=== PATIENT | female | born 1950 | race Caucasian/White ===

== ENCOUNTER → 2018-12-20 | Outpatient (CLI) | payer MEDICARE | END | disposition home or self-care (01) | LOC: RADUSWWP 10:11 | PROVIDERS: ATTEND Internal Medicine | DX: I73.9 Peripheral vascular disease, unspecified (principal) | CPT/HCPCS: 93922 ==

== ENCOUNTER → 2019-01-18 | Outpatient (CLI) | payer MEDICARE ==
--- NOTE | 2019-01-18 09:47 | MM ---
Reason for exam: additional evaluation requested from abnormal screening. Last mammogram was performed less than 1 month ago. History: Patient is postmenopausal. Benign excisional biopsy of the left breast. Physical Findings: Nurse did not find any significant physical abnormalities on exam. MG 3D Work Up W/Cad LT Spot compression CC, spot compression MLO, and LM view(s) were taken of the left breast. Prior study comparison: January 08, 2019, bilateral MG screening mammo w CAD. March 02, 2012, mammogram. The breast tissue is heterogeneously dense. This may lower the sensitivity of mammography. Finding: There is an indistinct irregular mass in the upper outer quadrant, anterior position of the left breast. New finding since March 02, 2012. These results were verbally communicated with the patient and result sheet given to the patient on 01/18/19. ASSESSMENT: Incomplete: need additional imaging evaluation, BI-RAD 0 RECOMMENDATION: Ultrasound of the left breast.
--- NOTE | 2019-01-18 09:48 | USB ---
Reason for exam: additional evaluation requested from abnormal screening. History: Patient is postmenopausal. Benign excisional biopsy of the left breast. US Breast Workup Limited LT Left limited breast ultrasound including focal area of concern, retroareolar and axilla demonstrates no cystic or solid lesion seen. These results were verbally communicated with the patient and result sheet given to the patient on 01/18/19. ASSESSMENT: Negative, BI-RAD 1 RECOMMENDATION: Follow-up diagnostic mammogram of the left breast in 6 months.
== END | disposition home or self-care (01) ==
LOC: RADMAMWWP 08:39
PROVIDERS: ATTEND Internal Medicine
DX: R92.8 Other abnormal and inconclusive findings on diagnostic imaging of breast (principal)
CPT/HCPCS: 77065; 76642; G0279; 77061

== ENCOUNTER → 2020-09-08 | Outpatient (CLI) | payer MEDICARE ==
--- NOTE | 2020-09-10 11:59 | MM ---
Reason for exam: screening (asymptomatic). Last mammogram was performed 1 year and 8 months ago. History: Patient is postmenopausal. Family history of breast cancer in paternal aunt. Benign excisional biopsy of the left breast. Took hormonal contraceptives for 7 years. Physical Findings: A clinical breast exam by your physician is recommended on an annual basis and results should be correlated with mammographic findings. MG 3D Screening Mammo W/Cad Bilateral CC and MLO view(s) were taken. Prior study comparison: January 18, 2019, left breast MG 3d work up w/cad LT. January 08, 2019, bilateral MG screening mammo w CAD. There are scattered fibroglandular densities. No significant changes when compared with prior studies. ASSESSMENT: Benign, BI-RAD 2 RECOMMENDATION: Routine screening mammogram of both breasts in 1 year.
== END ==
LOC: RADMAMWWP 10:43
PROVIDERS: ATTEND Internal Medicine Geriatric Medicine
DX: Z12.31 Encounter for screening mammogram for malignant neoplasm of breast (principal); Z80.3 Family history of malignant neoplasm of breast; Z78.0 Asymptomatic menopausal state
CPT/HCPCS: 77063; 77067

== ENCOUNTER → 2021-07-30 | Outpatient (CLI) | payer MEDICARE ==
--- NOTE | 2021-07-30 13:11 | XR ---
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 TECHNIQUE: Frontal, lateral, and swimmer's view of thoracic spine are obtained. COMPARISON: None. FINDINGS: Thoracic spine show S-shaped scoliosis without evidence of acute fracture or dislocation. Osseous structures are somewhat demineralized. Vertebral body heights are preserved. Mild multilevel disc space narrowing and spurring Visualized ribs are intact bilaterally. Overlying Cholecystectomy clips are present. IMPRESSION: As above.
== END | disposition home or self-care (01) ==
LOC: RADXRMAIN 12:51
PROVIDERS: ATTEND Internal Medicine Geriatric Medicine
DX: M41.84 Other forms of scoliosis, thoracic region (principal); M51.84 Other intervertebral disc disorders, thoracic region; Z90.49 Acquired absence of other specified parts of digestive tract
CPT/HCPCS: 72072

== ENCOUNTER 2023-11-08 16:17 | Inpatient (IN) | payer MEDICARE ==
--- NOTE | 2023-11-08 18:35 | ED ---
GI Bleed HPI - General Chief complaint: GI Bleed Stated complaint: Groin pain, blood in stool Time Seen by Provider: 11/08/23 17:56 Source: patient, RN notes reviewed, old records reviewed Mode of arrival: ambulatory Limitations: no limitations - History of Present Illness Initial comments: This is a 73-year-old female to the ER for evaluation of significant abdominal pain with diarrhea patient feels nauseous and the need to vomit with significant diarrhea and blood in the stool. No travels no sick contacts no family was of similar complaint history of colonoscopy 10 years ago normal. MD complaint: blood on toilet paper, blood streaked stool -: hour(s) Quality: cramping, burning, sharp Consistency: intermittent Improves with: none Worsens with: none Associated Symptoms: abdominal pain, nausea, weakness Treatments Prior to Arrival: none - Related Data Home Medications Medication Instructions Recorded Confirmed Calcium W/Vitamin D(Unknown Dose) 1 tab PO DAILY 11/08/23 11/08/23 Multivitamins, Thera [Multivitamin 1 tab PO DAILY 11/08/23 11/08/23 (formulary)] lisinopriL 40 mg PO DAILY 11/08/23 11/08/23 Previous Rx's Medication Instructions Recorded Ciprofloxacin HCl [Cipro] 500 mg PO BID 4 Days #8 tab 11/12/23 Pantoprazole [Protonix] 40 mg PO AC-BRKFST 30 Days #30 tab 11/12/23 metroNIDAZOLE [Flagyl] 500 mg PO TID 4 Days #12 tab 11/12/23 Allergies Allergy/AdvReac Type Severity Reaction Status Date / Time No Known Allergies Allergy Verified 01/18/19 09:10 Review of Systems ROS Statement: Those systems with pertinent positive or pertinent negative responses have been documented in the HPI. ROS Other: All systems not noted in ROS Statement are negative. Past Medical History Past Medical History: Hypertension History of Any Multi-Drug Resistant Organisms: None Reported Past Surgical History: Cholecystectomy, Orthopedic Surgery, Tubal Ligation Past Psychological History: No Psychological Hx Reported Smoking Status: Former smoker Past Alcohol Use History: Daily Past Drug Use History: None Reported General Exam Limitations: no limitations General appearance: alert, in no apparent distress Head exam: Present: atraumatic, normocephalic, normal inspection Eye exam: Present: normal appearance, PERRL, EOMI. Absent: scleral icterus, conjunctival injection, periorbital swelling ENT exam: Present: normal exam, mucous membranes moist Neck exam: Present: normal inspection. Absent: tenderness, meningismus, lymphadenopathy Respiratory exam: Present: normal lung sounds bilaterally. Absent: respiratory distress, wheezes, rales, rhonchi, stridor Cardiovascular Exam: Present: regular rate, normal rhythm, normal heart sounds. Absent: systolic murmur, diastolic murmur, rubs, gallop, clicks GI/Abdominal exam: Present: soft, normal bowel sounds. Absent: distended, tenderness, guarding, rebound, rigid Extremities exam: Present: normal inspection, full ROM, normal capillary refill. Absent: tenderness, pedal edema, joint swelling, calf tenderness Back exam: Present: normal inspection Neurological exam: Present: alert, oriented X3, CN II-XII intact Psychiatric exam: Present: normal affect, normal mood Skin exam: Present: warm, dry, intact, normal color. Absent: rash Course Vital Signs 11/08/23 11/08/23 11/08/23 16:40 19:48 21:13 Temperature 98.2 F Pulse Rate 65 60 57 L Respiratory 18 18 18 Rate Blood Pressure 154/101 155/65 137/53 O2 Sat by Pulse 98 99 96 Oximetry 11/08/23 11/08/23 22:00 22:43 Temperature Pulse Rate 56 L 59 L Respiratory 16 16 Rate Blood Pressure 129/57 118/50 O2 Sat by Pulse 97 99 Oximetry - Reevaluation(s) Reevaluation #1: 11/08/23 21:30 Medical records reviewed Reevaluation #2: 11/08/23 21:30 Patient symptoms are persistent here in the ER Reevaluation #3: 11/08/23 21:30 Patient informed of results and questions answered Reevaluation #4: Was pt. sent in by a medical professional or institution (, PA, TRACK SERVICE WORKER, urgent care, hospital, or [place] health care facility...) When possible be specific @ -no Did you speak to anyone other than the patient for history (EMS, parent, family, police, friend...)? What history was obtained from this source @ -no Did you review nursing and triage notes (agree or disagree)? Why? @ -agree Are old charts reviewed (outside hosp., previous admission, EMS record, old EKG, old radiological studies, urgent care reports/EKG's, [place] health care facility records)? Report findings @ -yes Differential Diagnosis (chest pain, altered mental status, abdominal pain women, abdominal pain men, vaginal bleeding, weakness, fever, dyspnea, syncope, headache, dizziness, GI bleed, back pain, seizure, CVA, palpatations, mental h ealth, musculoskeletal)? @ -prior EKG interpreted by me (3pts min.). @ -yes X-rays interpreted by me (1pt min.). @ -no CT interpreted by me (1pt min.). @ -Yes positive colitis U/S interpreted by me (1pt. min.). @ -no What testing was considered but not performed or refused? (CT, X-rays, U/S, l abs)? Why? @ -none What meds were considered but not given or refused? Why? @ -none Did you discuss the management of the patient with other professionals (professionals i.e. , PA, TRACK SERVICE WORKER, lab, RT, psych nurse, foster care social worker, electromyographic technician, teacher, fire information officer, case management specialist)? Give summary @ -no Was smoking cessation discussed for >3mins.? @ -no Was critical care preformed (if so, how long)? @ -no Were there social determinants of health that impacted care today? How? (Homelessness, low income, unemployed, alcoholism, drug addiction, transportation, low edu. Level, literacy, decrease access to med. care, detention, rehab)? @ -none Was there de-escalation of care discussed even if they declined (Discuss DNR or withdrawal of care, Hospice)? DNR status @ -no What co-morbidities impacted this encounter? (DM, HTN, Smoking, COPD, CAD, Cancer, CVA, ARF, Chemo, Hep., AIDS, mental health diagnosis, sleep apnea, morbid obesity)? @ -none Was patient admitted / discharged? Hospital course, mention meds given and route, prescriptions, significant lab abnormalities, going to OR and other pertinent info. @ - 73 female to ER for evaluation of diarrhea with bloody stools. Patient has significant colitis here in the emergency department will admit for symptomatic therapy, GI evaluation regarding bloody stools Admitted Undiagnosed new problem with uncertain prognosis? @ -no Drug Therapy requiring intensive monitoring for toxicity (Heparin, Nitro, Insulin, Cardizem)? @ -no Were any procedures done? @ -no Diagnosis/symptom? @ -Colitis with GI bleed Acute, or Chronic, or Acute on Chronic? @ -Acute Uncomplicated (without systemic symptoms) or Complicated (systemic symptoms)? @ -Complicated Side effects of treatment? @ -no Exacerbation, Progression, or Severe Exacerbation? @ -exacerbation Poses a threat to life or bodily function? How? (Chest pain, [place], [place], pneumonia, PE, COPD, DKA, ARF, appy, cholecystitis, CVA, Diverticulitis, Homicidal, Suicidal, threat to staff... and all critical care pts) @ -yes bloody stools Reevaluation #5: Differential GI Bleed: Esophageal varices, aortoenteric fistula, Perri-Negrete, gastritis, peptic ulcer disease, diverticulosis, inflammatory bowel disease, hemorrhoids, fissure, colitis, malignancy, Meckels diverticulum, this is not meant to be an all- inclusive list. - Consultations Consultation #1: With who agrees to admit this patient Medical Decision Making - Medical Decision Making 73 female to ER for evaluation of diarrhea with bloody stools. Patient has significant colitis here in the emergency department will admit for symptomatic therapy, GI evaluation regarding bloody stools - Lab Data Result diagrams: 11/12/23 06:07 11/12/23 06:07 Lab Results 11/08/23 11/08/23 11/08/23 Range/Units 19:01 19:01 19:01 WBC 10.2 (3.8-10.6) k/uL RBC 4.06 (3.80-5.40) m/uL Hgb 12.3 (11.4-16.0) gm/dL Hct 39.0 (34.0-46.0) % MCV 95.9 (80.0-100.0) fL MCH 30.3 (25.0-35.0) pg MCHC 31.6 (31.0-37.0) g/dL RDW 13.1 (11.5-15.5) % Plt Count 273 (150-450) k/uL MPV 8.0 Neutrophils % 80 % Lymphocytes % 13 % Monocytes % 4 % Eosinophils % 1 % Basophils % 0 % Neutrophils # 8.2 H (1.3-7.7) k/uL Lymphocytes # 1.4 (1.0-4.8) k/uL Monocytes # 0.4 (0-1.0) k/uL Eosinophils # 0.1 (0-0.7) k/uL Basophils # 0.0 (0-0.2) k/uL PT 10.1 (10.0-12.5) sec INR 0.9 (<1.2) APTT 22.5 (22.0-30.0) sec Sodium 135 L (137-145) mmol/L Potassium 4.8 (3.5-5.1) mmol/L Chloride 103 (98-107) mmol/L Carbon Dioxide 25 (22-30) mmol/L Anion Gap 7 mmol/L BUN 21 H (7-17) mg/dL Creatinine 1.04 (0.52-1.04) mg/dL Est GFR (CKD-EPI)AfAm 62 (>60 ml/min/1.73 sqM) Est GFR (CKD-EPI)NonAf 54 (>60 ml/min/1.73 sqM) Glucose 117 H (74-99) mg/dL Plasma Lactic Acid Santo (0.7-2.0) mmol/L Calcium 9.5 (8.4-10.2) mg/dL Total Bilirubin 0.5 (0.2-1.3) mg/dL AST 25 (14-36) U/L ALT 15 (4-34) U/L Alkaline Phosphatase 99 (38-126) U/L Total Protein 7.6 (6.3-8.2) g/dL Albumin 4.7 (3.5-5.0) g/dL Amylase 57 (30-110) U/L Lipase 73 (23-300) U/L 11/08/23 11/08/23 11/09/23 Range/Units 19:01 22:16 06:08 WBC 9.2 7.5 (3.8-10.6) k/uL RBC 3.25 L 3.10 L (3.80-5.40) m/uL Hgb 10.2 L 9.6 L (11.4-16.0) gm/dL Hct 31.2 L 30.2 L (34.0-46.0) % MCV 96.0 97.5 (80.0-100.0) fL MCH 31.5 31.0 (25.0-35.0) pg MCHC 32.8 31.8 (31.0-37.0) g/dL RDW 13.1 13.4 (11.5-15.5) % Plt Count 237 216 (150-450) k/uL MPV 7.9 8.7 Neutrophils % 80 71 % Lymphocytes % 14 20 % Monocytes % 4 6 % Eosinophils % 0 1 % Basophils % 0 0 % Neutrophils # 7.4 5.3 (1.3-7.7) k/uL Lymphocytes # 1.2 1.5 (1.0-4.8) k/uL Monocytes # 0.4 0.4 (0-1.0) k/uL Eosinophils # 0.0 0.0 (0-0.7) k/uL Basophils # 0.0 0.0 (0-0.2) k/uL PT (10.0-12.5) sec INR (<1.2) APTT (22.0-30.0) sec Sodium (137-145) mmol/L Potassium (3.5-5.1) mmol/L Chloride (98-107) mmol/L Carbon Dioxide (22-30) mmol/L Anion Gap mmol/L BUN (7-17) mg/dL Creatinine (0.52-1.04) mg/dL Est GFR (CKD-EPI)AfAm (>60 ml/min/1.73 sqM) Est GFR (CKD-EPI)NonAf (>60 ml/min/1.73 sqM) Glucose (74-99) mg/dL Plasma Lactic Acid Santo 0.8 (0.7-2.0) mmol/L Calcium (8.4-10.2) mg/dL Total Bilirubin (0.2-1.3) mg/dL AST (14-36) U/L ALT (4-34) U/L Alkaline Phosphatase (38-126) U/L Total Protein (6.3-8.2) g/dL Albumin (3.5-5.0) g/dL Amylase (30-110) U/L Lipase (23-300) U/L - EKG Data -: EKG Interpreted by Me (EKG sinus bradycardia 59 ME 169 QRS 81 QTc 379) - Radiology Data Radiology results: report reviewed (Pelvis positive for enteritis colitis), image reviewed Disposition Clinical Impression: Colitis, Enteritis, GI bleed Disposition: ADMITTED IP TO THIS HOSP Condition: Fair Is patient prescribed a controlled substance at d/c from ED?: No Time of Disposition: 21:30
[2023-11-08 19:14] LABS: Basophils % (A) 0 %; Eosinophils # (A) 0.1 k/uL (0-0.7); Eosinophils % (A) 1 %; HGB 12.3 gm/dL (11.4-16.0); Lymphocytes # (A) 1.4 k/uL (1.0-4.8); Lymphocytes % (A) 13 %; MCH 30.3 pg (25.0-35.0); MCHC 31.6 g/dL (31.0-37.0); MCV 95.9 fL (80.0-100.0); Monocytes # (A) 0.4 k/uL (0-1.0); Monocytes % (A) 4 %; Neutrophils # (A) 8.2 k/uL (1.3-7.7); Neutrophils % (A) 80 %; Platelet Count 273 k/uL (150-450); RBC 4.06 m/uL (3.80-5.40); RDW 13.1 % (11.5-15.5); WBC 10.2 k/uL (3.8-10.6)
[2023-11-08 19:23] LABS: ALT 15 U/L (4-34); AST 25 U/L (14-36); African American GFR (CKD) 62 (>60 ml/min/1.73 sqM); Albumin 4.7 g/dL (3.5-5.0); Alkaline Phosphatase 99 U/L (38-126); Amylase 57 U/L (30-110); Anion Gap 7 mmol/L; Blood Urea Nitrogen 21 mg/dL (7-17); Calcium 9.5 mg/dL (8.4-10.2); Carbon Dioxide 25 mmol/L (22-30); Chloride 103 mmol/L (98-107); Glucose 117 mg/dL (74-99); Lipase 73 U/L (23-300); Non-African American GFR(CKD) 54 (>60 ml/min/1.73 sqM); Potassium 4.8 mmol/L (3.5-5.1); Sodium 135 mmol/L (137-145); Total Bilirubin 0.5 mg/dL (0.2-1.3); Total Protein 7.6 g/dL (6.3-8.2)
[2023-11-08 19:30] LABS: INR 0.9 (<1.2); Partial Thromboplastin Time 22.5 sec (22.0-30.0); Prothrombin Time 10.1 sec (10.0-12.5)
[2023-11-08] MEDS: SODIUM CHLORIDE 0.9% 1,000 ML IV STA ×3 (19:33→21:45)
[2023-11-08] MEDS: PANTOPRAZOLE 40 MG/10 ML VIAL IVP STA (19:35)
[2023-11-08] MEDS: MORPHINE SULFATE 4 MG/ML SYRINGE IVP STA (19:37)
[2023-11-08] MEDS: ONDANSETRON ODT 8 MG TAB.RAPDIS PO STA (19:43)
--- NOTE | 2023-11-08 19:53 | CT ---
EXAMINATION TYPE: CT abdomen pelvis wo con CT DLP: 390.3 mGycm, Automated exposure control for dose reduction was used. DATE OF EXAM: 11/08/2023 7:23 PM COMPARISON: None. CLINICAL INDICATION:Female, 73 years old with history of abdominal pain; Intermittent constipation x 2 months, blood in stool this morning TECHNIQUE: Axial CT of the abdomen and pelvis. Sagittal and coronal reformats were created on a [employer] workstation. Contrast used: mL of , (none if empty) Oral contrast used: without Oral Contrast (none if empty) FINDINGS: LOWER CHEST: Mild bibasilar opacities likely atelectasis. Normal heart size. Radiodensity likely calc ification in the mitral valve region. ABDOMEN LIVER: The liver appears enlarged, the right lobe is 19.2 cm in length. Parenchyma is otherwise gross ly unremarkable. GALLBLADDER AND BILE DUCTS: The gallbladder is surgically absent. Biliary tree does not appear pathol ogically dilated. PANCREAS: Unremarkable. SPLEEN: Unremarkable. ADRENAL GLANDS: Unremarkable. KIDNEYS AND URETERS: No evidence of renal calculi or contour deformity. No hydronephrosis. Suspect sm all parapelvic cyst on the left. PELVIS BLADDER: Incompletely distended but grossly unremarkable. REPRODUCTIVE: Unremarkable. ABDOMEN & PELVIS STOMACH AND BOWEL: Stomach and small bowel do not appear distended, obstruction does not appear to be present. There are possibly small duodenal diverticula. In the left upper quadrant and left midabdom en, there is inflammatory change of the small bowel with haziness of the adjacent mesentery and multi ple mildly prominent mesenteric lymph nodes. PERITONEUM/RETROPERITONEUM: No evidence of pneumoperitoneum or free fluid. VASCULATURE: Mild atherosclerotic calcifications are present throughout the abdominal aorta and its b ranches. No evidence of aortic aneurysm. LYMPH NODES: No enlarged nodes by CT size criteria. SOFT TISSUE/ABDOMINAL WALL: Possible mild edema. MUSCULOSKELETAL: Osteopenia. Mild to moderate bilateral hip arthropathy. Mild/moderate multilevel deg enerative changes of the lumbar spine. Normal alignment. No evidence of acute osseous abnormality. IMPRESSION: 1. Inflammatory changes of the small bowel in the left mid-upper abdomen, suggesting nonspecific ent eritis. This could be infectious with other causes such as Crohn's disease also possible. 2. No evidence of bowel obstruction or free air. Normal appendix. 3. Hepatomegaly.
[2023-11-08] MEDS ORDERED: NALOXONE 0.4 MG/ML 1 ML VIAL IV PRN (21:32)
[2023-11-08] MEDS: AMPICILLIN-SULBACTAM 3 GM in SODIUM CHLORIDE 0.9% 100 ML IVPB STA (21:43)
[2023-11-08] MEDS: ONDANSETRON 4 MG/2 ML VIAL IVP STA (21:44)
[2023-11-08] MEDS: MORPHINE SULFATE 4 MG/ML SYRINGE IV PRN (22:01)
[2023-11-08 22:22] LABS: Basophils % (A) 0 %; Eosinophils % (A) 0 %; HCT 31.2 % (34.0-46.0); HGB 10.2 gm/dL (11.4-16.0); Lymphocytes # (A) 1.2 k/uL (1.0-4.8); Lymphocytes % (A) 14 %; MCH 31.5 pg (25.0-35.0); MCHC 32.8 g/dL (31.0-37.0); Mean Platelet Volume 7.9; Monocytes # (A) 0.4 k/uL (0-1.0); Monocytes % (A) 4 %; Neutrophils # (A) 7.4 k/uL (1.3-7.7); Neutrophils % (A) 80 %; Platelet Count 237 k/uL (150-450); RBC 3.25 m/uL (3.80-5.40); RDW 13.1 % (11.5-15.5); WBC 9.2 k/uL (3.8-10.6)
[2023-11-08] MEDS: SODIUM CHLORIDE 0.9% 500 ML 500 ML IV STA (22:30)
[2023-11-08] MEDS: SODIUM CHLORIDE 0.9% 1,000 ML IV SCH (22:35)
[2023-11-09 06:29] LABS: Basophils % (A) 0 %; Eosinophils % (A) 1 %; HCT 30.2 % (34.0-46.0); HGB 9.6 gm/dL (11.4-16.0); Lymphocytes # (A) 1.5 k/uL (1.0-4.8); Lymphocytes % (A) 20 %; MCHC 31.8 g/dL (31.0-37.0); MCV 97.5 fL (80.0-100.0); Mean Platelet Volume 8.7; Monocytes # (A) 0.4 k/uL (0-1.0); Monocytes % (A) 6 %; Neutrophils # (A) 5.3 k/uL (1.3-7.7); Neutrophils % (A) 71 %; Platelet Count 216 k/uL (150-450); RDW 13.4 % (11.5-15.5); WBC 7.5 k/uL (3.8-10.6)
[2023-11-09] MEDS: PANTOPRAZOLE 40 MG TABLET PO SCH (06:33)
--- NOTE | 2023-11-09 08:20 | P.HPIM ---
History of Present Illness H&P Date: 11/09/23 HISTORY OF PRESENT ILLNESS: 73-year-old Redacted medical history of hypertension, severe GERD, mild osteopenia, mild osteoarthritis who was seen in our office recently for her wellness visit has done very well with no major complaint she is still active physically works every day and has done very well. All blood work and lab with the exception of her cholesterol came back completely normal. Patient presented to the emergency department at [facility] late last night on November 08, 2023 for evaluation of severe abdominal pain with worsening diarrhea with nausea and vomiting her diarrhea had bloody stool and it patient had several episode and pain was impaired while abducting to the emergency department with above complaint. He was seen and evaluated her hemoglobin at presentation was 12.3 with bun of 21 creatinine 1.04 with mild elevated blood sugar. CT of the abdomen and pelvis performed shows inflamed change in the small bowel in the left mid upper abdominal area suggestive of nonspecific enteritis mother? Of Crohn disease no evidence of bowel obstruction but had mild hepatomegaly. Patient continued having significant GI bleed with bright red blood per rectum and severe diarrhea was started on IV hydration admitted to the hospital will be seen gastroenterology continue to watch for any significant drop in hemoglobin might require transfusion. The severity of her bleeding is bad that require her admitted to the ICU. REVIEW OF SYSTEMS: CONSTITUTIONAL: Well-developed no acute respiratory distress. EYES: No icterus sclerae, no conjunctivitis. EARS, NOSE, MOUTH, THROAT, and FACE: No sore throat, lymphadenopathy, carotid bruits or deformity. RESPIRATORY: No SOB cough or wheezes. CARDIOVASCULAR: No CP, Palpitation, PND, Orthopnea, or angina. GASTROINTESTINAL: Positive abdominal discomfort with slight tenderness mid abdominal area with no rebound or rigidity slight worsening tenderness going into the left lower quadrant area as well. GENITOURINARY: Negative for Hematuria or UTI, no kidney stones. INTEGUMENT/BREAST: Negative for any muscular injury with mild osteoarthritis.. HEMATOLOGIC/LYMPHATIC: Negative for bleed or purpura. MUSCULOSKELTAL: Negative for Myalgia or arthralgia. NEURLOGICAL: No LOC, Sz or syncope, blurred vision dizziness or abnormality.. BEHAVIORAL/PSYCH: Negative. ENDOCRINE: Negative. PHYSICAL EXAMINATION: General Appearance: Alert, cooperative, no distress, appears stated age. Neck HEENT: Supple, no lymphadenopathy, no thyroid enlargement, no carotid bruits. Lungs: Clear to auscultation without crackles or wheezes no rhonchi, no deformity. Chest Wall: Chest wall normal expansion with deep inspiration no tenderness and no deformity was found on exam, no costochondral pain or discomfort. Heart: Regular rate and rhythm, S1, S2 normal, no murmur, rub or gallop. Back: Symmetric, no curvature, ROM normal, no CVA tenderness. Abdomen: Soft, slight tenderness mid abdominal area no rebound or rigidity. Extremities: Extremities normal, atraumatic, no cyanosis or edema. Pulses: 2+ and symmetric. Skin: Skin color, texture, tugor normal, no rashes or lesions. Neurologic: Alert oriented x3 cranial nerves II through XII intact, no motor deficit, no abnormal balance or gait. ASSESSMENT AND PLAN: _Acute gastrointestinal bleed: Not clear whether this is acute colitis or enteritis, continue supportive care with IV fluid, might start patient on Flagyl at this point will watch H&H every 8 hours, consult gastroenterology patient be kept n.p.o. for possible Colonoscopy. _Acute blood loss anemia: Will continue to watch CBC transfuse blood if drop below 8 g. _Possible acute enteritis Vs Colitis: Stool for culture will be done after collecting specimen might start patient on metronidazole to 50 mg or 5 mg 3 times a day. she _Hypertension: Resume lisinopril might drop the dose down to 20 mg. _Severe GERD: Has been on omeprazole 20 mg a day. _GI prophylaxis: Continue omeprazole. _DVT prophylaxis: Patient will have knee-high VANNA hose and early mobilization. CODE STATUS: Full code. Admit patient to the inpatient service for more than 2 night stay. Past Medical History Past Medical History: Hypertension History of Any Multi-Drug Resistant Organisms: None Reported Past Surgical History: Cholecystectomy, Orthopedic Surgery, Tubal Ligation Past Psychological History: No Psychological Hx Reported Smoking Status: Former smoker Past Alcohol Use History: Daily Past Drug Use History: None Reported Medications and Allergies Home Medications Medication Instructions Recorded Confirmed Type Calcium W/Vitamin D(Unknown Dose) 1 tab PO DAILY 11/08/23 11/08/23 History Multivitamins, Thera [Multivitamin 1 tab PO DAILY 11/08/23 11/08/23 History (formulary)] Omeprazole [PriLOSEC] 20 mg PO DIRECTED 11/08/23 11/08/23 History Vit C/E/Zn/Coppr/Lutein/Zeaxan 2 cap PO DAILY 11/08/23 11/08/23 History [Preservision Areds 2 Softgel] lisinopriL 40 mg PO DAILY 11/08/23 11/08/23 History Allergies Allergy/AdvReac Type Severity Reaction Status Date / Time No Known Allergies Allergy Verified 01/18/19 09:10 Physical Exam Vitals: Vital Signs Temp Pulse Pulse Resp BP BP Pulse Ox 11/09/23 02:43 98.2 F 54 L 15 119/53 95 11/08/23 23:05 98.1 F 88 15 136/54 95 11/08/23 22:43 59 L 16 118/50 99 11/08/23 22:00 56 L 16 129/57 97 11/08/23 21:13 57 L 18 137/53 96 11/08/23 19:48 60 18 155/65 99 11/08/23 16:40 98.2 F 65 18 154/101 98 Intake and Output 11/08/23 11/08/23 11/09/23 14:59 22:59 06:59 Other: Weight 61.235 kg Results CBC & Chem 7: 11/09/23 06:08 11/08/23 19:01 Labs: Abnormal Lab Results - Last 24 Hours (Table) 11/08/23 11/08/23 11/08/23 Range/Units 19:01 19:01 22:16 RBC 3.25 L (3.80-5.40) m/uL Hgb 10.2 L (11.4-16.0) gm/dL Hct 31.2 L (34.0-46.0) % Neutrophils # 8.2 H (1.3-7.7) k/uL Sodium 135 L (137-145) mmol/L BUN 21 H (7-17) mg/dL Glucose 117 H (74-99) mg/dL Thrombosis Risk Factor Assmnt - Choose All That Apply Any of the Below Risk Factors Present?: No Other Risk Factors: Yes Each Risk Factor Represents 2 Points: Age 61-74 years Other congenital or acquired thrombophilia - If yes, enter type in comment: No Thrombosis Risk Factor Assessment Total Risk Factor Score: 2 Thrombosis Risk Factor Assessment Level: Low Risk
[2023-11-09] MEDS: lisinopriL 20 MG TAB PO SCH (08:29)
[2023-11-09] MEDS: PANTOPRAZOLE 40 MG/10 ML VIAL IVP SCH (08:29)
[2023-11-09] MEDS: ONDANSETRON 4 MG/2 ML VIAL IVP PRN (08:29)
[2023-11-09] MEDS: MULTIVITAMINS, THERA 1 EACH TAB PO SCH (08:29)
[2023-11-09] MEDS: VIT A,C & E-LUTEIN-MINERALS 1 EACH TAB PO SCH (08:30)
[2023-11-09] MEDS: metroNIDAZOLE-NS PMX 500 MG in SALINE 1 100ML.BAG IVPB SCH ×2 (11:20→18:52)
--- NOTE | 2023-11-09 14:12 | P.CONS ---
History of Present Illness - Reason for Consult Consult date: 11/09/23 Nausea and vomiting Requesting physician: Nestor Walton - Chief Complaint Abdominal pain, rectal bleeding - History of Present Illness This is a pleasant 73-year-old female who presented to the emergency department with complaints of nausea, abdominal pain and rectal bleeding. Patient states she had constipation so she took some stool softeners Marisol night. Yesterday morning she got up and she had a bowel movement which she states was loose diarrhea but did have bright red blood. She continued to have rectal bleeding 3-4 more times throughout the day with increased weakness and dizziness. Since she states that there was no stool mixed it was just all blood. Last night around 930 she had a small amount of blood in the toilet. She denies any previous history of a GI bleed. Past medical history includes hypertension. She is not on any anticoagulation. Last colonoscopy about 10 years ago. She had a CT of the abdomen pelvis that showed inflammatory changes of the small bowel in the left mid upper abdomen suggesting nonspecific enteritis. This could be infectious with other causes such as Crohn's disease also possible. No evidence of bowel obstruction or free air. Normal appendix. Hepatomegaly. Admitting hemoglobin 12.3 today's repeat hemoglobin 9.6. She has mild elevation in the BUN at 21. She states she had a low-grade fever however there is none documented during this stay. No leukocytosis. She was started on Flagyl by primary medicine team. Review of Systems REVIEW OF SYSTEMS: CARDIOPULMONARY: No chest pain or shortness of breath. Gastrointestinal: Abdominal pain. Nausea without vomiting. No hematemesis, coffee-ground emesis. Rectal bleeding, bright red. GENITOURINARY: No dysuria or hematuria. MUSCULOSKELETAL: Reports normal range of motion., Joint pain. SKIN: No rashes. No jaundice. ENDOCRINE: No chills, fevers. No excessive weight gain or loss. No polydipsia or polyuria. PSYCHIATRIC: Unremarkable. NEUROLOGY: No change in mental status. Denies dizziness, headache. ENT: Vision unremarkable. CONSTITUTIONAL: No recent weight loss. No fever, chills, night sweats. Past Medical History Past Medical History: Hypertension History of Any Multi-Drug Resistant Organisms: None Reported Past Surgical History: Cholecystectomy, Orthopedic Surgery, Tubal Ligation Past Psychological History: No Psychological Hx Reported Smoking Status: Former smoker Past Alcohol Use History: Daily Past Drug Use History: None Reported Medications and Allergies Home Medications Medication Instructions Recorded Confirmed Type Calcium W/Vitamin D(Unknown Dose) 1 tab PO DAILY 11/08/23 11/08/23 History Multivitamins, Thera [Multivitamin 1 tab PO DAILY 11/08/23 11/08/23 History (formulary)] Omeprazole [PriLOSEC] 20 mg PO DIRECTED 11/08/23 11/08/23 History Vit C/E/Zn/Coppr/Lutein/Zeaxan 2 cap PO DAILY 11/08/23 11/08/23 History [Preservision Areds 2 Softgel] lisinopriL 40 mg PO DAILY 11/08/23 11/08/23 History Allergies Allergy/AdvReac Type Severity Reaction Status Date / Time No Known Allergies Allergy Verified 01/18/19 09:10 Physical Exam Vitals: Vital Signs Temp Pulse Pulse Resp BP BP Pulse Ox 11/09/23 07:00 98.9 F 62 14 122/69 94 L 11/09/23 02:43 98.2 F 54 L 15 119/53 95 11/08/23 23:05 98.1 F 88 15 136/54 95 11/08/23 22:43 59 L 16 118/50 99 11/08/23 22:00 56 L 16 129/57 97 11/08/23 21:13 57 L 18 137/53 96 11/08/23 19:48 60 18 155/65 99 11/08/23 16:40 98.2 F 65 18 154/101 98 Intake and Output 11/08/23 11/09/23 11/09/23 22:59 06:59 14:59 Other: # Voids 2 Weight 61.235 kg General appearance: The patient is alert, oriented, appears in no acute distress. HET: Head is normocephalic and atraumatic. Conjunctiva pink. Sclera anicteric. Neck: Supple without lymphadenopathy. Trachea midline. Heart: Regular. Lungs: Equal expansion, normal respiratory effort. Abdomen: Soft, diffuse lower abdominal tenderness, nondistended. Skin: No rashes. No jaundice. Extremities: Normal skin color and turgor. No pedal edema. Neurological: No focal deficits. Alert and oriented x3. Results CBC & Chem 7: 11/10/23 06:33 11/10/23 06:33 Labs: Abnormal Lab Results - Last 24 Hours (Table) 11/08/23 11/08/23 11/08/23 Range/Units 19:01 19:01 22:16 RBC 3.25 L (3.80-5.40) m/uL Hgb 10.2 L (11.4-16.0) gm/dL Hct 31.2 L (34.0-46.0) % Neutrophils # 8.2 H (1.3-7.7) k/uL Sodium 135 L (137-145) mmol/L BUN 21 H (7-17) mg/dL Glucose 117 H (74-99) mg/dL 11/09/23 Range/Units 06:08 RBC 3.10 L (3.80-5.40) m/uL Hgb 9.6 L (11.4-16.0) gm/dL Hct 30.2 L (34.0-46.0) % Neutrophils # (1.3-7.7) k/uL Sodium (137-145) mmol/L BUN (7-17) mg/dL Glucose (74-99) mg/dL Assessment and Plan (1) Abdominal pain Narrative/Plan: 73-year-old female presenting with abdominal pain and rectal bleeding with acute onset yesterday morning with several episodes of bright red blood per rectum. CT abdomen pelvis showing inflammation within the small bowel consider nonspecific enteritis. Possible enteritis versus colitis. No previous history of GI bleed. Likely etiology infectious versus ischemic colitis. Bleeding has improved. Will follow, recommend outpatient colonoscopy within a few weeks. Continue Flagyl as ordered. Current Visit: Yes Status: Acute Code(s): R10.9 - UNSPECIFIED ABDOMINAL PAIN SNOMED Code(s): 15020684 (2) Rectal bleeding Current Visit: Yes Status: Acute Code(s): K62.5 - HEMORRHAGE OF ANUS AND RECTUM SNOMED Code(s): 01253238 Plan: 1. Continue symptomatic and supportive care 2. Daily CBC, transfuse for hemoglobin less than 7 3. Patient may have clear liquid diet 4. Continue Flagyl as ordered 5. If bleeding continues may need possible colonoscopy otherwise recommend outpatient Thank you for this consultation, we will continue to follow. Dr. Gomez Valadez I agree with the dictator's note, documented as a scribe by Deonna Stephenson.
[2023-11-09] MEDS: ACETAMINOPHEN TAB 325 MG TAB PO PRN (17:37)
[2023-11-10 07:04] LABS: ALT 18 U/L (4-34); AST 25 U/L (14-36); African American GFR (CKD) 78 (>60 ml/min/1.73 sqM); Albumin 2.8 g/dL (3.5-5.0); Albumin/Globulin Ratio 1.1; Alkaline Phosphatase 74 U/L (38-126); Anion Gap 6 mmol/L; Blood Urea Nitrogen 6 mg/dL (7-17); Calcium 8.3 mg/dL (8.4-10.2); Carbon Dioxide 20 mmol/L (22-30); Chloride 111 mmol/L (98-107); Globulin 2.5 g/dL; Glucose 93 mg/dL (74-99); Non-African American GFR(CKD) 68 (>60 ml/min/1.73 sqM); Potassium 4.2 mmol/L (3.5-5.1); Sodium 137 mmol/L (137-145); Total Bilirubin 0.4 mg/dL (0.2-1.3); Total Protein 5.3 g/dL (6.3-8.2)
[2023-11-10 07:23] LABS: Basophils % (A) 0 %; Eosinophils # (A) 0.1 k/uL (0-0.7); Eosinophils % (A) 2 %; HCT 28.4 % (34.0-46.0); HGB 9.4 gm/dL (11.4-16.0); Lymphocytes # (A) 1.5 k/uL (1.0-4.8); Lymphocytes % (A) 17 %; MCHC 33.2 g/dL (31.0-37.0); MCV 96.3 fL (80.0-100.0); Mean Platelet Volume 8.2; Monocytes # (A) 0.5 k/uL (0-1.0); Monocytes % (A) 5 %; Neutrophils # (A) 6.5 k/uL (1.3-7.7); Neutrophils % (A) 75 %; Platelet Count 200 k/uL (150-450); RBC 2.94 m/uL (3.80-5.40); WBC 8.7 k/uL (3.8-10.6)
[2023-11-10] MEDS: CIPROFLOXACIN HCL 500 MG TAB PO SCH (09:06)
--- NOTE | 2023-11-10 09:35 | P.PN ---
Subjective Progress Note Date: 11/10/23 Principal diagnosis: Rectal bleeding This is a pleasant 73-year-old female who presented to the emergency department with complaints of nausea, abdominal pain and rectal bleeding. Patient states she had constipation so she took some stool softeners Marisol night. Yesterday morning she got up and she had a bowel movement which she states was loose diarrhea but did have bright red blood. She continued to have rectal bleeding 3-4 more times throughout the day with increased weakness and dizziness. Since she states that there was no stool mixed it was just all blood. Last night around 930 she had a small amount of blood in the toilet. She denies any previous history of a GI bleed. Past medical history includes hypertension. She is not on any anticoagulation. Last colonoscopy about 10 years ago. She had a CT of the abdomen pelvis that showed inflammatory changes of the small bowel in the left mid upper abdomen suggesting nonspecific enteritis. This could be infectious with other causes such as Crohn's disease also possible. No evidence of bowel obstruction or free air. Normal appendix. Hepatomegaly. Admitting hemoglobin 12.3 today's repeat hemoglobin 9.6. She has mild elevation in the BUN at 21. She states she had a low-grade fever however there is none documented during this stay. No leukocytosis. She was started on Flagyl by primary medicine team. 11/10/2023 Patient seen and examined today as a follow-up. She states that she continues to have lower abdominal cramping and she had 5 more bloody bowel movements throughout yesterday in the evening. She denies any upper abdominal pain or discomfort at all in her lower abdomen. She denies any vomiting but states she is mildly nauseous. She has been on IV Flagyl. She has been afebrile. Repeat hemoglobin today 9.4 down from 9.6 yesterday. Labs otherwise unremarkable. Objective - Vital Signs Vital signs: Vital Signs Temp 98.1 F 11/10/23 02:09 Pulse 57 L 11/10/23 02:09 Resp 15 11/10/23 02:09 BP 151/78 11/10/23 02:09 Pulse Ox 95 11/10/23 02:09 FiO2 Intake & Output 11/09/23 11/09/23 11/10/23 06:59 18:59 06:59 Intake Total 250 Balance 250 Weight 61.235 kg Intake: Oral 250 Other: # Voids 2 6 1 # Bowel Movements 4 - Exam General appearance: The patient is alert, oriented, appears in no acute distress. HET: Head is normocephalic and atraumatic. Conjunctiva pink. Sclera anicteric. Neck: Supple without lymphadenopathy. Abdomen: Soft, lower abdominal tenderness, nondistended. Extremities: Normal skin color and turgor. No pedal edema Skin: No rashes, no jaundice Neurological: No focal deficits. Alert and oriented. - Labs CBC & Chem 7: 11/10/23 06:33 11/10/23 06:33 Assessment and Plan (1) Abdominal pain Narrative/Plan: 73-year-old female presenting with abdominal pain and rectal bleeding with acute onset yesterday morning with several episodes of bright red blood per rectum. CT abdomen pelvis showing inflammation within the small bowel consider nonspecific enteritis. Abdominal pain all in the lower abdomen. Likely etiology infectious versus ischemic colitis. Recommend outpatient colonoscopy within a few weeks. Continue Flagyl as ordered. Cipro added. Current Visit: Yes Status: Acute Code(s): R10.9 - UNSPECIFIED ABDOMINAL PAIN SNOMED Code(s): 46520771 (2) Rectal bleeding Current Visit: Yes Status: Acute Code(s): K62.5 - HEMORRHAGE OF ANUS AND RECTUM SNOMED Code(s): 58422921 Plan: 1. Continue symptomatic and supportive care 2. Daily CBC, transfuse for hemoglobin less than 7 3. Recommend clear liquid diet for another 24 hours, then advance as tolerated 4. Continue Flagyl as ordered. Will add Cipro 500 mg twice daily. Recommend 7-10-day course of antibiotics 5. Will plan for outpatient colonoscopy in 4 to 5 weeks. Thank you for allowing us to participate in the care of the patient, the GI service will sign off, gastroenterology will not be available at the hospital this weekend and through next week. If further evaluation by gastroenterology is required the patient will need transfer as per the primary team's discretion. Dr. Gomez Valadez I agree with the dictator's note, documented as a scribe by Deonna Stephenson.
[2023-11-10 15:57] LABS: Basophils # (A) 0.1 k/uL (0-0.2); Basophils % (A) 1 %; Eosinophils # (A) 0.3 k/uL (0-0.7); Eosinophils % (A) 3 %; HCT 31.9 % (34.0-46.0); HGB 10.2 gm/dL (11.4-16.0); Lymphocytes # (A) 1.9 k/uL (1.0-4.8); Lymphocytes % (A) 18 %; MCH 31.7 pg (25.0-35.0); MCHC 31.9 g/dL (31.0-37.0); MCV 99.7 fL (80.0-100.0); Mean Platelet Volume 8.1; Monocytes # (A) 0.5 k/uL (0-1.0); Monocytes % (A) 5 %; Neutrophils # (A) 7.4 k/uL (1.3-7.7); Neutrophils % (A) 72 %; Platelet Count 195 k/uL (150-450); RDW 12.9 % (11.5-15.5); WBC 10.3 k/uL (3.8-10.6)
--- NOTE | 2023-11-11 07:38 | P.PN ---
Subjective Progress Note Date: 11/10/23 HISTORY OF PRESENT ILLNESS: 73-year-old Redacted medical history of hypertension, severe GERD, mild osteopenia, mild osteoarthritis who was seen in our office recently for her wellness visit has done very well with no major complaint she is still active physically works every day and has done very well. All blood work and lab with the exception of her cholesterol came back completely normal. Patient presented to the emergency department at [facility] late last night on November 08, 2023 for evaluation of severe abdominal pain with worsening diarrhea with nausea and vomiting her diarrhea had bloody stool and it patient had several episode and pain was impaired while abducting to the emergency department with above complaint. He was seen and evaluated her hemoglobin at presentation was 12.3 with bun of 21 creatinine 1.04 with mild elevated blood sugar. CT of the ab domen and pelvis performed shows inflamed change in the small bowel in the left mid upper abdominal area suggestive of nonspecific enteritis mother? Of Crohn disease no evidence of bowel obstruction but had mild hepatomegaly. Patient continued having significant GI bleed with bright red blood per rectum and severe diarrhea was started on IV hydration admitted to the hospital will be seen gastroenterology continue to watch for any significant drop in hemoglobin might require transfusion. The severity of her bleeding is bad that require her admitted to the ICU. November 10, 2023: Patient continued to have significant GI bleed hemoglobin dropped down To 9.4. She is seeing gastroenterology not planning to do any endoscopy at this point review her testing believe this is mostly colitis either infectious or ischemic, Flagyl was started and continue the added Cipro to it. The patient is still having significant cramping discomfort will watch her hemoglobin to make sure it remain stable with no active bleed that require any further backup or transfer to the ICU or blood transfusion. Otherwise hopefully her Cipro and Flagyl will control her symptoms otherwise continue to become more symptomatic patient might require to start one of the colitis medication temporary till her colonoscopy is done which will be delayed at least the next 2 weeks if she is more stable. REVIEW OF SYSTEMS: CONSTITUTIONAL: Well-developed no acute respiratory distress. EYES: No icterus sclerae, no conjunctivitis. EARS, NOSE, MOUTH, THROAT, and FACE: No sore throat, lymphadenopathy, carotid bruits or deformity. RESPIRATORY: No SOB cough or wheezes. CARDIOVASCULAR: No CP, Palpitation, PND, Orthopnea, or angina. GASTROINTESTINAL: Positive abdominal discomfort with slight tenderness mid abdominal area with no rebound or rigidity slight worsening tenderness going into the left lower quadrant area as well. GENITOURINARY: Negative for Hematuria or UTI, no kidney stones. INTEGUMENT/BREAST: Negative for any muscular injury with mild osteoarthritis.. HEMATOLOGIC/LYMPHATIC: Negative for bleed or purpura. MUSCULOSKELTAL: Negative for Myalgia or arthralgia. NEURLOGICAL: No LOC, Sz or syncope, blurred vision dizziness or abnormality.. BEHAVIORAL/PSYCH: Negative. ENDOCRINE: Negative. PHYSICAL EXAMINATION: General Appearance: Alert, cooperative, no distress, appears stated age. Neck HEENT: Supple, no lymphadenopathy, no thyroid enlargement, no carotid bruits. Lungs: Clear to auscultation without crackles or wheezes no rhonchi, no deformit y. Chest Wall: Chest wall normal expansion with deep inspiration no tenderness and no deformity was found on exam, no costochondral pain or discomfort. Heart: Regular rate and rhythm, S1, S2 normal, no murmur, rub or gallop. Back: Symmetric, no curvature, ROM normal, no CVA tenderness. Abdomen: Soft, slight tenderness mid abdominal area no rebound or rigidity. Extremities: Extremities normal, atraumatic, no cyanosis or edema. Pulses: 2+ and symmetric. Skin: Skin color, texture, tugor normal, no rashes or lesions. Neurologic: Alert oriented x3 cranial nerves II through XII intact, no motor deficit, no abnormal balance or gait. ASSESSMENT AND PLAN: _Acute gastrointestinal bleed: Possibly enteritis and colitis or colitis can be ischemic or infectious she is remain on Flagyl and Cipro with antidiarrheal medication, continue to watch for bleed support and transfusion if needed if her hemoglobin drop below 8. _Acute blood loss anemia: Will continue to watch CBC transfuse blood if drop below 8 g. _Possible acute enteritis Vs Colitis: Flagyl and Cipro both at this point continue hydration patient to stay on a clear liquid will advance to gradually to soft diet when she is ready. _Hypertension: Resume lisinopril might drop the dose down to 20 mg. _Severe GERD: Has been on omeprazole 20 mg a day. _GI prophylaxis: Continue omeprazole. _DVT prophylaxis: Patient will have knee-high VANNA hose and early mobilization. Prognosis: Fair. Discussion. Patient continued to have active bleed currently hemoglobin dropped down quite a bit gastroenterology and not planning to do any endoscopy at this point but patient is having signs and symptoms of infectious or ischemic colitis her CAT scan shows slight problem consistent with finding in the colon wall in the small intestine. If the antibiotic is not any better should probably start patient on sulfasalazine or Asacol in the next 24 hours. Patient can continue to require being in the hospital specially with her symptoms and active bleed still there is no bleed or drop in hemoglobin at least for 48 hours specially if she is not having any more pain hoping this symptom will be controlled with the two antibiotics on board. Objective - Vital Signs Vital signs: Vital Signs Temp 98.1 F 11/10/23 02:09 Pulse 57 L 11/10/23 02:09 Resp 15 11/10/23 02:09 BP 151/78 11/10/23 02:09 Pulse Ox 95 11/10/23 02:09 FiO2 Intake & Output 11/09/23 11/09/23 11/10/23 06:59 18:59 06:59 Intake Total 250 Balance 250 Weight 61.235 kg Intake: Oral 250 Other: # Voids 2 6 1 - Labs CBC & Chem 7: 11/10/23 15:36 11/10/23 06:33 Labs: Abnormal Lab Results - Last 24 Hours (Table) 11/09/23 Range/Units 06:08 RBC 3.10 L (3.80-5.40) m/uL Hgb 9.6 L (11.4-16.0) gm/dL Hct 30.2 L (34.0-46.0) %
[2023-11-11 09:21] LABS: Basophils # (A) 0.05 X 10*3/uL (0.00-0.10); Basophils % (A) 0.7 %; Eosinophils # (A) 0.34 X 10*3/uL (0.04-0.35); Eosinophils % (A) 4.5 %; HCT 26.2 % (37.2-46.3); HGB 8.4 g/dL (12.0-15.0); Lymphocytes # (A) 1.84 X 10*3/uL (0.90-5.00); Lymphocytes % (A) 24.1 %; MCH 30.9 pg (27.0-32.0); MCHC 32.1 g/dL (32.0-37.0); MCV 96.3 FL (80.0-97.0); Mean Platelet Volume 11.2 FL (9.5-12.2); Monocytes # (A) 0.51 X 10*3/uL (0.20-1.00); Monocytes % (A) 6.7 %; NRBC Per 100 WBC 0 X 10*3/uL (0.00-0.01); Neutrophils # (A) 4.86 X 10*3/uL (1.80-7.70); Neutrophils % (A) 63.7 %; Platelet Count 175 X 10*3/uL (140-440); RBC 2.72 X 10*6/uL (4.10-5.20); RDW 13.6 % (11.5-14.5); WBC 7.62 X 10*3/uL (4.50-10.00)
[2023-11-11 09:51] LABS: ALT 13 U/L (8-44); AST 18 U/L (13-35); Albumin 3.1 g/dL (3.8-4.9); Albumin/Globulin Ratio 1.94 Ratio (1.60-3.17); Alkaline Phosphatase 66 U/L (41-126); BUN/Creat Ratio 8.89 Ratio (12.00-20.00); Carbon Dioxide 21.3 mmol/L (21.6-31.8); Chloride 110 mmol/L (96-109); Globulin 1.6 g/dL (1.6-3.3); Glucose 93 mg/dL (70-110); Sodium 138 mmol/L (135-145); Total Bilirubin <0.2 mg/dL (0.3-1.2); Total Protein 4.7 g/dL (6.2-8.2)
--- NOTE | 2023-11-11 13:58 | P.PN ---
Subjective Progress Note Date: 11/11/23 73-year-old with medical history of hypertension, severe GERD, mild osteopenia, mild osteoarthritis who was seen in our office recently for her wellness visit has done very well with no major complaint she is still active physically works every day and has done very well. All blood work and lab with the exception of her cholesterol came back completely normal. Patient presented to the emergency department at [facility] late last night on November 08, 2023 for evaluation of severe abdominal pain with worsening diarrhea with nausea and vomiting her diarrhea had bloody stool and it patient had several episode and pain was impaired while abducting to the emergency department with above complaint. He was seen and evaluated her hemoglobin at presentation was 12.3 with bun of 21 creatinine 1.04 with mild elevated blood sugar. CT of the abdomen and pelvis performed shows inflamed change in the small bowel in the left mid upper abdominal area suggestive of nonspecific enteritis mother? Of Crohn disease no evidence of bowel obstruction but had mild hepatomegaly. Patient continued having significant GI bleed with bright red blood per rectum and severe diarrhea was started on IV hydration admitted to the hospital will be seen gastroenterology continue to watch for any significant drop in hemoglobin might require transfusion. The severity of her bleeding is bad that require her admitted to the ICU. November 10, 2023: Patient continued to have significant GI bleed hemoglobin dropped down To 9.4. She is seeing gastroenterology not planning to do any endoscopy at this point review her testing believe this is mostly colitis either infectious or ischemic, Flagyl was started and continue the added Cipro to it. The patient is still having significant cramping discomfort will watch her hemoglobin to make sure it remain stable with no active bleed that require any further backup or transfer to the ICU or blood transfusion. Otherwise hopefully her Cipro and Flagyl will control her symptoms otherwise continue to become more symptomatic patient might require to start one of the colitis medication temporary till her colonoscopy is done which will be delayed at least the next 2 weeks if she is more stable. 11/10. Patient seen and examined. Blood work done this morning showed WBC 7.62, hemoglobin 8.4, platelet count 175. States that stools are much more formed, still they are dark. Currently tolerating regular diet REVIEW OF SYSTEMS: CONSTITUTIONAL: No fever, no malaise,. CARDIOVASCULAR: No chest pain, no palpitations, no syncope. PULMONARY: No shortness of breath, no cough, GASTROINTESTINAL: No diarrhea, no nausea, no vomiting, no abdominal pain. NEUROLOGICAL: No headaches, no weakness, PHYSICAL EXAMINATION: GENERAL: The patient is alert and oriented x3, not in any acute distress. Well developed, well nourished. HEENT: Pupils are round and equally reacting to light. EOMI. No scleral icterus. No conjunctival pallor. Normocephalic, atraumatic. No pharyngeal erythema. No thyromegaly. CARDIOVASCULAR: S1 and S2 present. No murmurs, rubs, or gallops. PULMONARY: Chest is clear to auscultation, no wheezing or crackles. ABDOMEN: Soft, nontender, nondistended, normoactive bowel sounds. No palpable organomegaly. MUSCULOSKELETAL: No joint swelling or deformity. EXTREMITIES: No cyanosis, clubbing, or pedal edema. NEUROLOGICAL: Gross neurological examination did not reveal any focal deficits. SKIN: No rashes. Assessment and plan _Acute gastrointestinal bleed: Possibly enteritis and colitis or colitis can be ischemic or infectious Monitor vital sign Monitor CBC Continue Flagyl and Cipro with antidiarrheal medication, GI had evaluated the patient, recommended no endoscopic intervention, continuation of IV antibiotics _Acute blood loss anemia: Monitor CBC _Possible acute enteritis Vs Colitis: Continue IV Cipro and Flagyl. _Hypertension: Continue lisinopril _Severe GERD: Has been on omeprazole 20 mg a day. _GI prophylaxis: Continue omeprazole. Labs and medication were reviewed.. Continue same treatment. Continue with symptomatic treatment. Resume home medication. Monitor labs and vitals. DVT and GI prophylaxis. Further recommendations as per clinical course of the patient Dictation was produced using [employer] dictation software. please excuse any grammatical, word or spelling errors. Objective - Vital Signs Vital signs: Vital Signs Temp 98.2 F 11/11/23 07:00 Pulse 58 L 11/11/23 07:00 Resp 15 11/11/23 07:00 BP 137/73 11/11/23 07:00 Pulse Ox 98 11/11/23 07:00 FiO2 Intake & Output 11/10/23 11/11/23 11/11/23 18:59 06:59 18:59 Intake Total 240 Balance 240 Intake: Oral 240 Other: # Voids 1 1 # Bowel Movements 1 - Labs CBC & Chem 7: 11/11/23 02:55 11/11/23 02:55 Labs: Abnormal Lab Results - Last 24 Hours (Table) 11/10/23 Range/Units 15:36 RBC 3.20 L (3.80-5.40) m/uL Hgb 10.2 L (11.4-16.0) gm/dL Hct 31.9 L (34.0-46.0) %
[2023-11-12 08:24] VITALS: BP 168/74; PULSE 57; RESP 14; TEMP 98.5
[2023-11-12 09:25] LABS: Basophils # (A) 0.05 X 10*3/uL (0.00-0.10); Basophils % (A) 0.8 %; Eosinophils % (A) 4.6 %; HCT 27.7 % (37.2-46.3); HGB 9.2 g/dL (12.0-15.0); Lymphocytes # (A) 1.62 X 10*3/uL (0.90-5.00); Lymphocytes % (A) 24.8 %; MCH 30.7 pg (27.0-32.0); MCHC 33.2 g/dL (32.0-37.0); MCV 92.3 FL (80.0-97.0); Mean Platelet Volume 11.1 FL (9.5-12.2); Monocytes # (A) 0.45 X 10*3/uL (0.20-1.00); Monocytes % (A) 6.9 %; NRBC Per 100 WBC 0 X 10*3/uL (0.00-0.01); Neutrophils % (A) 62.7 %; Platelet Count 208 X 10*3/uL (140-440); RDW 13.4 % (11.5-14.5); WBC 6.53 X 10*3/uL (4.50-10.00)
[2023-11-12 09:43] LABS: ALT 12 U/L (8-44); AST 17 U/L (13-35); Albumin 3.5 g/dL (3.8-4.9); Albumin/Globulin Ratio 1.94 Ratio (1.60-3.17); Alkaline Phosphatase 71 U/L (41-126); BUN/Creat Ratio 9.09 Ratio (12.00-20.00); Calcium 8.8 mg/dL (8.7-10.3); Carbon Dioxide 19.3 mmol/L (21.6-31.8); Chloride 110 mmol/L (96-109); Globulin 1.8 g/dL (1.6-3.3); Glucose 101 mg/dL (70-110); Potassium 4.2 mmol/L (3.5-5.5); Sodium 140 mmol/L (135-145); Total Bilirubin <0.2 mg/dL (0.3-1.2); Total Protein 5.3 g/dL (6.2-8.2)
--- NOTE | 2023-11-12 12:41 | P.DS ---
Providers Date of admission: 11/09/23 08:45 Expected date of discharge: 11/12/23 Attending physician: Arvind Ferrell Consults: 11/08/23 21:32 Consult Physician Routine Consulting Provider: Francheska Valadez Consult Reason/Comments: nv Do you want consulting provider notified?: Yes Primary care physician: Arvind Ferrell [facility] Course: Discharge diagnoses; _Acute gastrointestinal bleed: Possibly enteritis and colitis Being discharged on oral Cipro and Flagyl for 4 more days to complete a 1 week of antibiotics _Acute blood loss anemia: Monitor CBC _Possible acute enteritis Vs Colitis: Being discharged on oral Cipro and Flagyl for 4 more days to complete a 1 week of antibiotics _Hypertension: Continue lisinopril _Severe GERD: Being discharged on Protonix 40 mg daily Hospital course; 73-year-old with medical history of hypertension, severe GERD, mild osteopenia, mild osteoarthritis who was seen in our office recently for her wellness visit has done very well with no major complaint she is still active physically works every day and has done very well. All blood work and lab with the exception of her cholesterol came back completely normal. Patient presented to the emergency department at [facility] late last night on November 08, 2023 for evaluation of severe abdominal pain with worsening diarrhea with nausea and vomiting her diarrhea had bloody stool and it patient had several episode and pain was impaired while abducting to the emergency department with above complaint. He was seen and evaluated her hemoglobin at presentation was 12.3 with bun of 21 creatinine 1.04 with mild elevated blood sugar. CT of the abdomen and pelvis performed shows inflamed change in the small bowel in the left mid upper abdominal area suggestive of nonspecific enteritis mother? Of Crohn disease no evidence of bowel obstruction but had mild hepatomegaly. Patient continued having significant GI bleed with bright red blood per rectum and severe diarrhea was started on IV hydration admitted to the hospital will be seen gastroenterology continue to watch for any significant drop in hemoglobin might require transfusion. The severity of her bleeding is bad that require her admitted to the ICU. November 10, 2023: Patient continued to have significant GI bleed hemoglobin dropped down To 9.4. She is seeing gastroenterology not planning to do any endoscopy at this point review her testing believe this is mostly colitis either infectious or ischemic, Flagyl was started and continue the added Cipro to it. The patient is still having significant cramping discomfort will watch her hemoglobin to make sure it remain stable with no active bleed that require any further backup or transfer to the ICU or blood transfusion. Otherwise hopefully her Cipro and Flagyl will control her symptoms otherwise continue to become more symptomatic patient might require to start one of the colitis medication temporary till her colonoscopy is done which will be delayed at least the next 2 weeks if she is more stable. 11/10. Patient seen and examined. Blood work done this morning showed WBC 7.62, hemoglobin 8.4, platelet count 175. States that stools are much more formed, still they are dark. Currently tolerating regular diet 11/11. Patient seen and examined. Lab work done this morning showed W6.53, hemoglobin 9.2, sodium 140, potassium 4.2, BUN 10, creatinine 1.1. Diarrhea has improved. Patient keen to go home. Being discharged on oral Cipro and Flagyl for 4 more days to complete a 1 week of antibiotics. Patient needs outpatient colonoscopy in 4 to 6 weeks. Outpatient follow-up with GI PHYSICAL EXAMINATION: GENERAL: The patient is alert and oriented x3, not in any acute distress. Well developed, well nourished. HEENT: Pupils are round and equally reacting to light. EOMI. No scleral icterus. No conjunctival pallor. Normocephalic, atraumatic. No pharyngeal erythema. No thyromegaly. CARDIOVASCULAR: S1 and S2 present. No murmurs, rubs, or gallops. PULMONARY: Chest is clear to auscultation, no wheezing or crackles. ABDOMEN: Soft, nontender, nondistended, normoactive bowel sounds. No palpable organomegaly. MUSCULOSKELETAL: No joint swelling or deformity. EXTREMITIES: No cyanosis, clubbing, or pedal edema. NEUROLOGICAL: Gross neurological examination did not reveal any focal deficits. SKIN: No rashes. Dictation was produced using [employer] dictation software. please excuse any grammatical, word or spelling errors. Patient Condition at Discharge: Fair Plan - Discharge Summary New Discharge Prescriptions: New Ciprofloxacin HCl [Cipro] 500 mg PO BID 4 Days #8 tab metroNIDAZOLE [Flagyl] 500 mg PO TID 4 Days #12 tab Pantoprazole [Protonix] 40 mg PO AC-BRKFST 30 Days #30 tab Continue Multivitamins, Thera [Multivitamin (formulary)] 1 tab PO DAILY lisinopriL 40 mg PO DAILY Calcium W/Vitamin D(Unknown Dose) 1 tab PO DAILY Discontinued Omeprazole [PriLOSEC] 20 mg PO DIRECTED Vit C/E/Zn/Coppr/Lutein/Zeaxan [Preservision Areds 2 Softgel] 2 cap PO DAILY Discharge Medication List Calcium W/Vitamin D(Unknown Dose) 1 tab PO DAILY 11/08/23 [History] Multivitamins, Thera [Multivitamin (formulary)] 1 tab PO DAILY 11/08/23 [History] lisinopriL 40 mg PO DAILY 11/08/23 [History] Ciprofloxacin HCl [Cipro] 500 mg PO BID 4 Days #8 tab 11/12/23 [Rx] Pantoprazole [Protonix] 40 mg PO AC-BRKFST 30 Days #30 tab 11/12/23 [Rx] metroNIDAZOLE [Flagyl] 500 mg PO TID 4 Days #12 tab 11/12/23 [Rx] Patient Instructions/Handouts: Gastrointestinal Bleeding (ED) Discharge Disposition: HOME SELF-CARE
== END 2023-11-12 13:05 | disposition home or self-care (01) | DRG 392 ==
LOC: EC 16:17 → 6NMEDSUR 21:34 → OBSVTOIN 11-09 08:45
PROVIDERS: ADMIT Internal Medicine Geriatric Medicine; ATTEND Internal Medicine Geriatric Medicine
DX: A09 Infectious gastroenteritis and colitis, unspecified (principal); K55.9 Vascular disorder of intestine, unspecified; D62 Acute posthemorrhagic anemia; K92.1 Melena; R16.0 Hepatomegaly, not elsewhere classified; I10 Essential (primary) hypertension; K21.9 Gastro-esophageal reflux disease without esophagitis; K59.00 Constipation, unspecified; M85.80 Other specified disorders of bone density and structure, unspecified site; M19.90 Unspecified osteoarthritis, unspecified site; Z79.899 Other long term (current) drug therapy; Z87.891 Personal history of nicotine dependence
CPT/HCPCS: 36415; 74176; 80053; 82150; 83605; 83690; 85025; 85610; 85730; 87045; 87046; 87324; 96361; 96365; 96375; 96376; 99285

== ENCOUNTER 2024-02-28 08:20 | Day surgery (SDC) | payer MEDICARE ==
[2024-02-28] MEDS ORDERED: LIDOCAINE 1% INJ 10MG/ML (20 ML MDV) ONE (10:30)
[2024-02-28] MEDS ORDERED: PROPOFOL 10 MG/ML 20 ML VIAL IV ONE (10:30)
[2024-02-28] MEDS ORDERED: LACTATED RINGERS 1,000 ML BAG ONE (10:30)
--- NOTE | 2024-03-01 15:57 | OP ---
OPERATIVE REPORT DATE OF SERVICE : 02/28/2024 HISTORY: The patient is a 73-year-old pleasant white female scheduled for an elective upper endoscopy as well as colonoscopy as a part of evaluation of iron deficiency anemia. She also had a recent episode of acute GI bleed for which she was hospitalized in November of this year with possible acute ischemic colitis and symptoms have resolved. Now, she has alternating diarrhea and constipation. PROCEDURE PERFORMED: 1. Esophagogastroduodenoscopy with biopsy. 2. Colonoscopy. PREOPERATIVE DIAGNOSIS: Iron deficiency anemia, recent acute GI bleed. ANESTHESIA: IV sedation per Anesthesia. DESCRIPTION OF PROCEDURE: After informed consent was obtained from the patient, she was brought into the endoscopy unit. IV conscious sedation was administered by Anesthesia under continuous monitoring. Initially, upper endoscopy was done. The Olympus CF-180 video endoscope was inserted into the mouth. Esophagus intubated without any difficulty and was gradually advanced into the stomach and duodenum and carefully examined. Bulb and the second part of the duodenum appeared normal. Biopsies were done from the duodenum to evaluate for celiac disease. Scope was then withdrawn to the stomach, adequately insufflated with air. Upon careful examination, mucosa of the antrum had mild gastritis. Biopsies were done from this area. On retroflexion, cardia and fundus appeared normal. Scope was then withdrawn to the esophagus. The GE junction was located at 40 cm from the incisors. It appeared regular with no erythema, erosions or ulcerations. Entire length of the esophagus appeared normal. Small hiatal hernia noted. The patient tolerated the procedure well. She continued to remain sedated. At this time, a colonoscopy was done. Digital rectal examination was normal. The Olympus CF-180 video colonoscopy was inserted into the rectum and gradually advance to the cecum. Careful examination was performed as the scope was gradually being withdrawn. The ileocecal valve and appendiceal orifice were visualized and appeared normal. The prep was excellent. Mucosa of the cecum, ascending colon, transverse colon, descending colon, sigmoid colon, and rectum appeared normal. Retroflexion was performed in the rectum. Small internal hemorrhoids were seen and the patient tolerated the procedure well. IMPRESSION: 1. Upper endoscopy revealed: a. Mild gastritis. b. Small hiatal hernia. 2. Colonoscopy was within normal limits with no evidence of colitis or colorectal neoplasia except for small internal hemorrhoids. RECOMMENDATIONS: Findings of this examination were discussed with the patient as well as the family. She was advised to follow up with the biopsy results and she will be seen in the office in 2 to 3 weeks. Recommend a repeat colonoscopy 10 years. MMODL / IJN: [id number] /
== END 2024-02-28 12:15 ==
LOC: ORWHC2ENDO 08:20
PROVIDERS: ATTEND Internal Medicine Gastroenterology
DX: K29.50 Unspecified chronic gastritis without bleeding (principal); K44.9 Diaphragmatic hernia without obstruction or gangrene; D50.9 Iron deficiency anemia, unspecified; K64.8 Other hemorrhoids
CPT/HCPCS: 43239; G0121; 45378; 88305

== ENCOUNTER → 2025-01-28 | Outpatient (CLI) | payer MEDICARE ==
--- NOTE | 2025-01-28 08:47 | MM ---
Reason for Exam: Screening (asymptomatic). Last mammogram was performed 2 year(s) and 5 month(s) ago. Patient History: Menarche at age 10. First Full-Term at age 17. Postmenopausal. Patient has history of breast feeding. Patient used Hormonal Contraceptives for 7 years. Benign Excisional Biopsy on the left side. Paternal aunt had breast cancer. Risk Values: Nneka 5 year model risk: 1.7%. NCI Lifetime model risk: 3.8%. Prior Study Comparison: 01/18/2019 Left Diagnostic Mammogram, [facility]. 09/08/2020 Bilateral Screening Mammogram, [facility]. 08/31/2022 Bilateral MG 3D screening mammo w/cad, [facility]. Tissue Density: There are scattered areas of fibroglandular density. Findings: Analyzed By CAD. Right breast: There is no suspicious group of microcalcifications or new suspicious mass. Left breast: There is no suspicious group of microcalcifications or new suspicious mass. Overall Assessment: Negative, BI-RAD 1 Management: Screening Mammogram of both breasts in [address] [facility] will attempt to contact patient to return for supplemental views and ultrasound if indicated. Patient should continue monthly self-breast exams. A clinical breast exam by your physician is recommended on an annual basis. This exam should not preclude additional follow-up of suspicious palpable abnormalities. Note on Nneka scores and lifetime risk: 1. A Nneka score greater than 3% is considered moderate risk. If this is the case, consider specialist referral to assess eligibility for a risk reducing agent. 2. If overall lifetime risk for the development of breast cancer is 20% or higher, the patient may qualify for future screening with alternating mammogram and breast MRI. [facility], , 01/28/2025 8:44 AM. Electronically signed and approved by: Francisco Moffett DO
== END | disposition home or self-care (01) ==
LOC: RADMAMWWP 06:49
PROVIDERS: ATTEND Internal Medicine Geriatric Medicine
DX: Z12.31 Encounter for screening mammogram for malignant neoplasm of breast (principal); R92.323 Mammographic fibroglandular density, bilateral breasts; Z78.0 Asymptomatic menopausal state; Z80.3 Family history of malignant neoplasm of breast; Z92.0 Personal history of contraception
CPT/HCPCS: 77063; 77067